=== PATIENT | female | born 1995 | race Two or more races ===

== ENCOUNTER 2024-08-17 17:40 | Emergency (ER) | payer OTHER ==
[~2024-08-17] VITALS: Ht 160 cm; Wt 79.8 kg
[2024-08-17 21:18] LABS: HEMATOCRIT 36.6 % (36.0-45.00); HEMOGLOBIN 12.9 g/dL (12.0-15.00); MEAN CELL VOLUME 90.3 fL (80.00-100.00); MEAN CORPUSCULAR HEMOGLOBIN 31.8 pg (27.00-32.0); MEAN CORPUSCULAR HGB CONC 35.2 g/dl (32.0-36.0); PLATELET COUNT 271 K/uL (150-450); RED BLOOD COUNT 4.06 M/uL (4.00-6.00); RED CELL DISTRIBUTION WIDTH 12.9 % (11.5-14.5)
[2024-08-17 21:29] LABS: URINE APPEARANCE Turbid; URINE BILIRRUBIN Negative (NEGATIVE); URINE COLOR Yellow; URINE GLUCOSE Negative (NEGATIVE); URINE KETONE Negative (NEGATIVE); URINE LEUKOCYTE Large; URINE NITRATE Negative; URINE PROTEIN Trace (NEGATIVE); URINE UROBILINOGEN 0.2 E.U./dl
[2024-08-17 21:33] LABS: URINE RBC 29.4 uL (0.0-20.8); URINE WBC 972.3 uL (0.0-23.2)
[2024-08-17 21:52] LABS: URINE BACTERIA > 9821.5 uL (0.0-1933); URINE BLOOD TRACE; URINE CAST 0.76 uL (0.0-1.40); URINE EPITHELIAL CELLS > 201.7 uL (0.0-38.8)
[2024-08-18] MEDS ORDERED: CIPRO500 MG PO (00:04)
== END 2024-08-18 00:52 | disposition home or self-care (01) ==
LOC: ER 17:42
DX: N39.0 Urinary tract infection, site not specified (principal); R10.2 Pelvic and perineal pain; Z88.6 Allergy status to analgesic agent